=== PATIENT | female | born 1970 | race Caucasian/White ===

== ENCOUNTER 2018-02-26 11:57 | Emergency (ER) | payer MEDICAID ==
[~2018-02-26] VITALS: Ht 157.5 cm; Wt 101.6 kg
[~2018-02-26 11:57] MED LIST: ATENOLOL5 PO; CYCLOBENZAPRINE5 MG PO; ENALAPRIL5 MG PO; GLU850 PO; LANTI SQ; LIO10 PO; LOP600 PO; MAG PO; METFORMIN500 MG PO; MOT600 PO; NOR10T PO; TEN50 PO; TRE400 PO; V5 PO; [UNRECOGNIZED DRUG - REMARK]; [UNRECOGNIZED DRUG - REMARK]; [UNRECOGNIZED DRUG - REMARK]
[2018-02-26 12:10] VITALS: Ht 157.5 cm; Wt 101.6 kg
[2018-02-26 14:39] VITALS: BP 116/62
== END 2018-02-26 14:39 | disposition home or self-care (01) ==
LOC: ED 11:57
DX: J30.89 Other allergic rhinitis (principal); E78.00 Pure hypercholesterolemia, unspecified; I10 Essential (primary) hypertension; E11.9 Type 2 diabetes mellitus without complications